=== PATIENT | male | born 1960 | race Caucasian/White ===

== ENCOUNTER 2017-09-28 15:52 | Emergency (ER) | payer SELFPAY ==
[2017-09-28] MEDS ORDERED: Sodium Chloride 0.9% 10 ML Syringe FLUSH PRN (16:08)
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
[2017-09-28 17:04] VITALS: BP 105/73
== END 2017-09-28 17:11 ==
LOC: JP.ED 15:52
DX: I67.9 Cerebrovascular disease, unspecified (principal); J44.9 Chronic obstructive pulmonary disease, unspecified; F17.210 Nicotine dependence, cigarettes, uncomplicated; Z79.82 Long term (current) use of aspirin
CPT/HCPCS: 36415; 70450; 80048; 84484; 85027; 99284-25

== ENCOUNTER 2019-12-23 16:29 | Emergency (ER) | payer MEDICARE, MEDICAID ==
[2019-12-23] MEDS ORDERED: HYDROmorphone 0.5 MG/0.5 ML Syringe IVPUSH ONE ×2 (16:33→19:22)
--- NOTE | 2019-12-23 16:38 | EDM.PDOC ---
<Pranay Talbetr - Last Filed: 12/23/19 17:14> ED HPI GENERAL MEDICAL PROBLEM - General Chief Complaint: Abdominal Pain Stated Complaint: MEDICAL VIA NORTH Time Seen by Provider: 12/23/19 16:30 Source of Information: Reports: Patient, EMS, Old Records History Limitations: Reports: No Limitations - History of Present Illness INITIAL COMMENTS - FREE TEXT/NARRATIVE: 59 yo male with COPD and oxygen @ 2 liters/min/nc 24 hrs/day presents via EMS with central abdominal pain that began yesterday and has been constant ever since. He lives alone in an assisted living environment. No fever or nausea. He gets some relief lying on his R side. No past abdominal surgeries. Had a stool last night that was mixed with bright red blood about 1 am, none since. No anal pain at the time of that stool passage. Onset: Sudden Onset Date: 12/22/19 Duration: Day(s): (1), Constant Location: Reports: Abdomen Quality: Reports: Ache Severity: Moderate Improves with: Reports: Rest Worsens with: Reports: Movement Context: Reports: Other (See HPI) Associated Symptoms: Reports: Shortness of Breath (chronic). Denies: Fe ayana/Chills, Nausea/Vomiting Treatments VETERINARIAN SMALL ANIMAL: Reports: Other (see below) (none) Left Upper Abdomen Pain Score (Numeric/FACES): 7 - Related Data Allergies Allergy/AdvReac Type Severity Reaction Status Date / Time No Known Allergies Allergy Verified 09/28/17 16:39 Home Meds: Home Meds Albuterol Sulfate [Proair Hfa] 2 puff IH Q4H PRN 06/27/16 [History] Aspirin 325 mg PO DAILY 06/27/16 [History] Fluticasone Propion/Salmeterol [Advair 250-50 Diskus] 1 inh IH BID 06/27/16 [History] Acetaminophen [Tylenol] 650 mg PO Q6HR PRN 08/12/19 [History] Budesonide/Formoterol Fumarate [Symbicort 160-4.5 Mcg Inhaler] 2 puff INH BID 08/12/19 [History] Ipratropium/Albuterol Sulfate [Iprat-Albut 0.5-3(2.5) mg/3 ml] 3 ml INH Q4HR PRN 08/12/19 [History] Nicotine [Nicotrol] 1 puff INH ASDIRECTED PRN 08/12/19 [History] Pantoprazole Sodium [Protonix] 20 mg PO DAILY 08/12/19 [History] atorvaSTATin Calcium [Atorvastatin Calcium] 80 mg PO BEDTIME 08/12/19 [History] Past Medical History HEENT History: Reports: Impaired Vision Cardiovascular History: Reports: None Respiratory History: Reports: COPD Gastrointestinal History: Reports: Colon Polyp Genitourinary History: Reports: None Musculoskeletal History: Reports: None Neurological History: Reports: CVA Other Neuro History: PT THINKS HE MAY HAVE HAD A STROKE Psychiatric History: Reports: None Endocrine/Metabolic History: Reports: None Hematologic History: Reports: None Immunologic History: Reports: None Oncologic (Cancer) History: Reports: None Dermatologic History: Reports: None - Infectious Disease History Infectious Disease History: Reports: Chicken Pox, Measles, Mumps - Past Surgical History Head Surgeries/Procedures: Reports: None HEENT Surgical History: Reports: None Cardiovascular Surgical History: Reports: None Respiratory Surgical History: Reports: None GI Surgical History: Reports: Colonoscopy Endocrine Surgical History: Reports: None Neurological Surgical History: Reports: None Musculoskeletal Surgical History: Reports: None Dermatological Surgical History: Reports: None Social & Family History - Family History Family Medical History: Noncontributory - Caffeine Use Caffeine Use: Reports: Coffee, Soda, Tea ED ROS GENERAL - Review of Systems Review Of Systems: See Below Constitutional: Reports: No Symptoms HEENT: Reports: No Symptoms Respiratory: Reports: Shortness of Breath (chronic). Denies: Wheezing, Cough, Sputum, Hemoptysis Cardiovascular: Reports: No Symptoms Endocrine: Reports: No Symptoms GI/Abdominal: Reports: Abdominal Pain (central across his abdomen in a band. ), Bloody Stool, Hematochezia. Denies: Black Stool, Constipation, Diarrhea, Hematemesis, Melena, Nausea, Vomiting : Reports: No Symptoms Musculoskeletal: Reports: No Symptoms Skin: Reports: No Symptoms Neurological: Reports: No Symptoms ED EXAM, GI/ABD - Physical Exam Exam: See Below Exam Limited By: No Limitations General Appearance: Alert, No Apparent Distress, Thin Eyes: Bilateral: Normal Appearance Ears: Normal External Exam, Normal Canal, Hearing Grossly Normal Nose: Normal Inspection, No Blood Throat/Mouth: Normal Inspection, Normal Lips, Normal Oropharynx, Normal Voice, No Airway Compromise Head: Atraumatic, Normocephalic Neck: Normal Inspection Respiratory/Chest: No Respiratory Distress, Lungs Clear, No Accessory Muscle Use, Decreased Breath Sounds. No: Wheezing Cardiovascular: Regular Rate, Rhythm, No Edema GI/Abdominal Exam: Soft, No Distention, Tender (multiple areas of tenderness), Abnormal Bowel Sounds (slight increase). No: Normal Bowel Sounds, Non-Tender, Distended, Guarding, Rigid, Rebound Back Exam: Normal Inspection Extremities: Normal Inspection, Normal Range of Motion, Non-Tender, No Pedal Edema Neurological: Alert, Oriented, CN II-XII Intact, Normal Cognition, No Motor/Sensory Deficits Psychiatric: Normal Affect, Normal Mood Skin Exam: Warm, Dry, Intact, Normal Color, No Rash Course - Radiology Interpretation Free Text/Narrative:: CT abd/pelvis with IV contrast- CT Results Date: 12/23/19 Departure - Departure Disposition: DC/Tfer to [facility] 02 Clinical Impression: Pancreatic mass, Elevated liver enzymes, Elevated lipase - Discharge Information Referrals: PCP,None [Primary Care Provider] - Forms: ED Department Discharge Care Plan Goals: transfer to [facility]. <Vlaencia Nicole - Last Filed: 12/23/19 19:37> Course - Vital Signs Last Recorded V/S: Last Vital Signs Temp 36.4 C 12/23/19 16:37 Pulse 97 12/23/19 16:37 Resp 11 L 12/23/19 16:37 BP 125/96 H 12/23/19 16:37 Pulse Ox 99 12/23/19 16:37 - Orders/Labs/Meds Orders: Active Orders 24 hr Category Date Time Status AMYLASE [CHEM] Stat Lab 12/23/19 19:05 Ordered PATIENT RETYPE [BBK] Stat Lab 12/23/19 16:44 Results TYPE AND SCREEN [BBK] Stat Lab 12/23/19 16:44 Results UA W/MICROSCOPIC [URIN] Urgent Lab 12/23/19 19:09 Ordered Iopamidol [Isovue-300 (61%)] Med 12/23/19 17:30 Active 100 ml IV . DIRECTED Sodium Chloride 0.9% [Normal Saline] 1,000 ml Med 12/23/19 19:30 Ordered IV ASDIRECTED Sodium Chloride 0.9% [Normal Saline] 1,000 ml Med 12/23/19 19:30 Ordered IV ASDIRECTED Sodium Chloride 0.9% [Normal Saline] 80 ml Med 12/23/19 17:30 Active IV ASDIRECTED Sodium Chloride 0.9% [Saline Flush] Med 12/23/19 16:32 Active 10 ml FLUSH ASDIRECTED PRN Saline Lock Insert [OM.PC] Routine Oth 12/23/19 16:32 Ordered Medication Orders Sodium Chloride (Normal Saline) 80 mls @ 3 mls/sec IV ASDIRECTED SHON Last Admin: 12/23/19 18:51 Dose: 3 mls/sec Documented by: JOSE Sodium Chloride (Normal Saline) 1,000 mls @ 999 mls/hr IV ASDIRECTED SHON Last Admin: 12/23/19 19:18 Dose: 999 mls/hr Documented by: MARC Sodium Chloride (Normal Saline) 1,000 mls @ 999 mls/hr IV ASDIRECTED SHON Iopamidol (Isovue-300 (61%)) 100 ml IV . DIRECTED SHON Last Admin: 12/23/19 18:51 Dose: 100 ml Documented by: JOSE Sodium Chloride (Saline Flush) 10 ml FLUSH ASDIRECTED PRN PRN Reason: Keep Vein Open Last Admin: 12/23/19 19:28 Dose: 10 ml Documented by: Admin: 12/23/19 16:50 Dose: 10 ml Documented by: Admin: 12/23/19 16:49 Dose: 10 ml Documented by: ALBERTINA Labs: Laboratory Tests 12/23/19 12/23/19 12/23/19 Range/Units 16:44 16:44 16:44 WBC 9.4 (4.5-11.0) K/uL RBC 5.34 (4.30-5.90) M/uL Hgb 16.2 H (12.0-15.0) g/dL Hct 49.6 (40.0-54.0) % MCV 93 (80-98) fL MCH 30 (27-31) pg MCHC 33 (32-36) % Plt Count 290 (150-400) K/uL Sodium 136 L (140-148) mmol/L Potassium 4.2 (3.6-5.2) mmol/L Chloride 96 L (100-108) mmol/L Carbon Dioxide 34 H (21-32) mmol/L Anion Gap 10.2 (5.0-14.0) mmol/L BUN 4 L (7-18) mg/dL Creatinine 0.7 L (0.8-1.3) mg/dL Est Cr Clr Drug Dosing 72.00 mL/min Estimated GFR (MDRD) > 60 (>60) Glucose 109 H (74-106) mg/dL Calcium 8.9 (8.5-10.1) mg/dL Total Bilirubin (0.2-1.0) mg/dL Direct Bilirubin (0.0-0.2) mg/dL Indirect Bilirubin AST (15-37) U/L ALT (12-78) U/L Alkaline Phosphatase (46-116) U/L C-Reactive Protein 1.65 H (0.0-0.3) mg/dL Total Protein (6.4-8.2) g/dL Albumin (3.4-5.0) g/dL Globulin (2.3-3.5) g/dL Albumin/Globulin Ratio (1.2-2.2) Lipase (73-393) U/L Blood Type O POSITIVE Gel Antibody Screen Negative 12/23/19 12/23/19 Range/Units 18:45 18:46 WBC (4.5-11.0) K/uL RBC (4.30-5.90) M/uL Hgb (12.0-15.0) g/dL Hct (40.0-54.0) % MCV (80-98) fL MCH (27-31) pg MCHC (32-36) % Plt Count (150-400) K/uL Sodium (140-148) mmol/L Potassium (3.6-5.2) mmol/L Chloride (100-108) mmol/L Carbon Dioxide (21-32) mmol/L Anion Gap (5.0-14.0) mmol/L BUN (7-18) mg/dL Creatinine (0.8-1.3) mg/dL Est Cr Clr Drug Dosing mL/min Estimated GFR (MDRD) (>60) Glucose (74-106) mg/dL Calcium (8.5-10.1) mg/dL Total Bilirubin 0.6 (0.2-1.0) mg/dL Direct Bilirubin 0.14 (0.0-0.2) mg/dL Indirect Bilirubin 0.46 AST 174 H D (15-37) U/L ALT 293 H (12-78) U/L Alkaline Phosphatase 162 H (46-116) U/L C-Reactive Protein (0.0-0.3) mg/dL Total Protein 7.9 (6.4-8.2) g/dL Albumin 3.8 (3.4-5.0) g/dL Globulin 4.1 H (2.3-3.5) g/dL Albumin/Globulin Ratio 0.9 L (1.2-2.2) Lipase 49121 H (73-393) U/L Blood Type Gel Antibody Screen Meds: Medications Generic Name Dose Route Start Last Admin Trade Name Freq PRN Reason Stop Dose Admin Sodium Chloride 80 mls @ 3 mls/sec 12/23/19 17:30 12/23/19 18:51 Normal Saline IV 3 mls/sec ASDIRECTED SHON Administration Sodium Chloride 1,000 mls @ 999 mls/hr 12/23/19 19:30 12/23/19 19:18 Normal Saline IV 999 mls/hr ASDIRECTED SHON Administration Sodium Chloride 1,000 mls @ 999 mls/hr 12/23/19 19:30 Normal Saline IV ASDIRECTED SHON Iopamidol 100 ml 12/23/19 17:30 12/23/19 18:51 Isovue-300 (61%) IV 100 ml . DIRECTED SHON Administration Sodium Chloride 10 ml 12/23/19 16:32 12/23/19 19:28 Saline Flush FLUSH 10 ml ASDIRECTED PRN Administration Keep Vein Open Discontinued Medications Generic Name Dose Route Start Last Admin Trade Name Jackq PRN Reason Stop Dose Admin Hydromorphone HCl 0.25 mg 12/23/19 16:33 12/23/19 16:48 Dilaudid IVPUSH 12/23/19 16:34 0.25 mg ONETIME ONE Administration Hydromorphone HCl 0.5 mg 12/23/19 19:22 12/23/19 19:28 Dilaudid IVPUSH 12/23/19 19:23 0.5 mg Q6H ONE Administration - Re-Assessments/Exams Free Text/Narrative Re-Assessment/Exam: 12/23/19 19:34 pt on cat scan was found to have a large mass at the head of the Pancreas . This is much larger than in 2019. He has elevated lipase and elevated liver enzymes. He is very tender in the rt mid abdoman. He is not vomiting. He did have a stool during the nite that had bright red blood mixed with it. Departure - Departure Time of Disposition: 19:36 Condition: Fair Sepsis Event Note (ED) - Focused Exam Vital Signs: Vital Signs Temp Pulse Resp BP Pulse Ox 12/23/19 16:37 36.4 C 97 11 L 125/96 H 99 12/23/19 16:33 36.4 C 97 11 L 92 L - My Orders Last 24 Hours: My Active Orders 12/23/19 19:05 AMYLASE [CHEM] Stat 12/23/19 19:09 UA W/MICROSCOPIC [URIN] Urgent 12/23/19 19:30 Sodium Chloride 0.9% [Normal Saline] 1,000 ml IV ASDIRECTED Sodium Chloride 0.9% [Normal Saline] 1,000 ml IV ASDIRECTED - Assessment/Plan Last 24 Hours: My Active Orders 12/23/19 19:05 AMYLASE [CHEM] Stat 12/23/19 19:09 UA W/MICROSCOPIC [URIN] Urgent 12/23/19 19:30 Sodium Chloride 0.9% [Normal Saline] 1,000 ml IV ASDIRECTED Sodium Chloride 0.9% [Normal Saline] 1,000 ml IV ASDIRECTED
[2019-12-23] MEDS: Sodium Chloride 0.9% 10 ML Syringe FLUSH PRN ×3 (16:49→19:28)
[2019-12-23] MEDS ORDERED: Sodium Chloride 0.9% 80 ML IV SCH (17:30)
[2019-12-23] MEDS ORDERED: Iopamidol 612 MG/ML 100 ML Bottle IV SCH (17:30)
--- NOTE | 2019-12-23 18:53 | CRLCT ---
INDICATION: Abdominal pain. Bright red blood per rectum. COMPARISON: February 18, 2019 TECHNIQUE: CT examination of the abdomen and pelvis was performed following the uneventful intravenous administration of 100 cc of Isovue-300. Thin section axial images were obtained from the lung bases through the pubic symphysis. Oral contrast was not administered. Please note that all CT scans at this facility use dose modulation, iterative reconstruction, and/or weight-based dosing when appropriate to reduce radiation dose to as low as reasonably achievable. FINDINGS: LUNG BASES: Severe emphysema at the lung bases. Heart size normal at the lung bases. LIVER/BILIARY SYSTEM:The liver is normal in size and configuration. There is no focal mass and there is no intra- or extra hepatic biliary ductal dilatation.The gall bladder appears normal. ADRENALS: Normal KIDNEYS, URETERS and BLADDER:The kidneys appear normal. No visible mass, calculus or hydronephrosis. The ureters and bladder as visualized appear normal. SPLEEN:Normal appearance. PANCREAS: There is pancreatic ductal dilatation. There is also a cystic pancreatic head mass that measures about 3.7 by 2.4 by 4.6 centimeters. Previously this measured 2.4 x 1.6 by 2.8 centimeters. Therefore this is substantially larger. This appears to be associated with a duct and may be a side branch IPMN. Full formal evaluation of this is recommended at a clinically appropriate time. Correlation with current pancreatic enzymes is recommended. The best study to evaluate this is a multi phase MRI. RETROPERITONEUM and MESENTERY: There is no mass, adenopathy or aortic aneurysm. GASTROINTESTINAL SYSTEM: The bowel is somewhat difficult to evaluate due to lack of contrast and paucity of fat planes. The small bowel is prominent but does not appear to be obstructed. This could potentially represent an enteritis pattern but is similar in appearance to the prior exam. I see no visible ideology for bright red blood per rectum PELVIS: No mass, adenopathy or free fluid. OSSEOUS STRUCTURES and ABDOMINAL WALL: There is an age-appropriate appearance of the osseous structures.No significant abdominal wall defect. OTHER: No free fluid or free air. IMPRESSION: 1. Severe emphysema at the lung bases. 2. Pancreatic head mass probably a benign cystic lesion associated with the ductal system such as a side branch IPMN. However, this is substantially larger than February 18, 2019. No biliary ductal dilatation. Correlate with current pancreatic enzymes and follow-up formal evaluation of this lesion is advised 3. No clearly visible etiology for bright red blood per rectum. 4. Mildly prominent small bowel without evidence of obstruction. This could represent an enteritis pattern. 5. I discussed the findings with Dr. Nicole and 6:45 p.m. on December 23, [address] scans at this facility use dose modulation, iterative reconstruction, and/or weight-based dosing when appropriate to reduce radiation dose to as low as reasonably achievable. Dictated by Ja Guajardo MD @ Dec 23 2019 6:40PM Signed by Dr. Ja Guajardo @ Dec 23 2019 6:51PM
[2019-12-23] MEDS ORDERED: Sodium Chloride 0.9% 1,000 ML IV SCH ×2 (19:30)
[2019-12-23 22:19] VITALS: BP 152/93; PULSE 75
== END 2019-12-23 22:30 ==
LOC: JP.ED 16:29
DX: K86.9 Disease of pancreas, unspecified (principal); R74.8 Abnormal levels of other serum enzymes; E78.41 Elevated Lipoprotein(a); J44.9 Chronic obstructive pulmonary disease, unspecified; Z79.82 Long term (current) use of aspirin; Z79.899 Other long term (current) drug therapy; Z86.73 Personal history of transient ischemic attack (TIA), and cerebral infarction without residual deficits
CPT/HCPCS: 36415; 74177; 80048; 80076; 81001; 82150; 83690; 85027; 86140; 86850; 86900; 86901; 96374; 96376; 99285; J1170; J7030; J7050; Q9967